=== PATIENT | female | born 1945 | race Caucasian/White ===

== ENCOUNTER → 2018-10-13 | Outpatient (CLI) | payer MEDICARE ==
[~2018-10-13] MED LIST: CATHETER FLUSH 10 ML SYR IV PRN; REGADENOSON 0.4 MG/5 ML SYR (LEXISCAN) IV ONE
[2018-10-13 08:14] VITALS: BP 182/81
[2018-10-13 08:17] VITALS: BP 195/99
--- NOTE | 2018-10-16 12:56 | STRESS TEST ---
DATE OF SERVICE: 10/13/2018 NUCLEAR MYOVIEW REPORT In summary, the patient was injected with 9.75 mCi of technetium-99 Myoview and the resting images were obtained, with peak stress level, a 32.20 mCi of technetium-99 were injected and the stress images were acquired. The resting and stress images were reviewed and compared in the short axis, horizontal long axis, and vertical long axis views. Review of the images showed breast attenuation with decreased uptake involving the anterior wall and anterior septum with mild reversibility. SSS is 11, SDS 3, TID value 0.9. On the gated images, the left ventricle appeared to be in normal size with normal contractility. Calculated ejection fraction 64%, mild hypokinesia at the anterior wall. IN CONCLUSION: 1. Breast attenuation affecting the quality of the images with possible ischemia involving the anterior wall and anterior septum. 2. Normal left ventricular size with mild hypokinesia involving the anterior wall. Calculated ejection fraction 64%. Job ID: [id number] DocumentID: [id number] Dictated Date: 10/16/2018 12:16:53 Health Professor Date: 10/16/2018 12:55:28 Dictated By: ISRAEL GUZMAN MD
== END ==
LOC: CARD 06:37
PROVIDERS: ATTEND Internal Medicine
DX: I51.89 Other ill-defined heart diseases (principal); R53.83 Other fatigue; R53.81 Other malaise
CPT/HCPCS: 78452; 93017